=== PATIENT | male | born 1960 | race Caucasian/White ===

== ENCOUNTER → 2025-02-11 15:07 | Outpatient (REF) | payer BC, SELFPAY ==
[2025-02-11 17:41] LABS: % Basophils 1.2 % (0-2); % Eosinophils 1.4 % (0-6); % Immature Granulocytes 2.5 % (0-0.5); % Lymphocytes 25.5 % (20.5-51.1); % Monocytes 8.7 % (1.7-9.3); % Neutrophils 60.7 % (42.2-75.2); Absolute Basophils 0.1 10^3/uL (0-0.2); Absolute Eosinophils 0.1 10^3/uL (0-0.7); Absolute Immature Granulocytes 0.2 10^3/uL (0-0.05); Absolute Lymphocytes 2.1 10^3/uL (1.2-3.4); Absolute Monocytes 0.7 10^3/uL (0.1-0.6); Hematocrit 50.6 % (39.0-52.0); Hemoglobin 17.7 g/dL (13.0-18.0); Mean Corpuscular Hgb 31.3 pg (27.0-31.0); Mean Corpuscular Volume 89.6 fL (80.0-94.0); Mean Platelet Volume 9.9 fL (7.4-10.4); Nucleated Red Blood Cells % 0 % (-); Platelet Count 306 10^3/uL (130-400); Red Blood Cell Count 5.65 10^6/uL (4.70-6.10); Red Cell Dist. Width 12.8 % (11.5-14.5); White Blood Cell Count 8.3 10^3/uL (4.8-10.8)
[2025-02-11 18:10] LABS: ALT (SGPT) 77 U/L (0-50); AST (SGOT) 49 U/L (17-59); Albumin 5.3 g/dl (3.5-5.0); Alkaline Phosphatase 57 U/L (38-126); Blood Urea Nitrogen 15 mg/dl (9-20); Calcium 10.1 mg/dl (8.4-10.2); Carbon Dioxide 26 mmol/L (22-30); Chloride 103 mmol/L (98-107); Glucose 93 mg/dl (70-99); HDL Cholesterol 43 mg/dl; LDL Cholesterol, Calculated 90 mg/dl; Potassium 4.9 mmol/L (3.5-5.1); Sodium 142 mmol/L (135-145); Total Bilirubin 0.8 mg/dl (0.2-1.3); Total Cholesterol 168 mg/dl (50-199); Total Protein 8.4 g/dl (6.3-8.2); Triglyceride 178 mg/dl (10-149); Very Low Density Lipoprotein 35 mg/dl (0-30); eGFR > 60.00
[2025-02-11 18:40] LABS: PSA, Total - Screen 5.26 ng/ml (0.0-4.0)
== END ==
LOC: REG 15:07
PROVIDERS: ATTENDING PHYSICIAN Hospitalist; FAMILY PHYSICIAN Internal Medicine
DX: Z00.00 Encounter for general adult medical examination without abnormal findings (principal); Z12.5 Encounter for screening for malignant neoplasm of prostate; Z13.220 Encounter for screening for lipoid disorders
CPT/HCPCS: 36415; 80053; 80061; 85025; G0103

== ENCOUNTER → 2025-04-29 15:05 | Outpatient (REF) | payer BC, MEDICARE, SELFPAY ==
[2025-05-02 04:05] LABS: PSA Total 6.5 ng/mL (0.0-4.0)
== END ==
LOC: REG 15:05
PROVIDERS: ATTENDING PHYSICIAN Hospitalist
DX: R97.20 Elevated prostate specific antigen [PSA] (principal)
CPT/HCPCS: 36415; 84153; 84154

== ENCOUNTER → 2025-09-11 11:27 | Outpatient (REF) | payer MEDICARE, BC, SELFPAY | LOC: MRI 3T 11:27 | PROVIDERS: ATTENDING PHYSICIAN Specialist; FAMILY PHYSICIAN Hospitalist | DX: R97.20 Elevated prostate specific antigen [PSA] (principal) | CPT/HCPCS: 72197; A9575 ==